=== PATIENT | male | born 1965 | race Caucasian/White ===

== ENCOUNTER 2022-04-18 07:20 | Outpatient (CLI) | payer BC ==
[2022-04-18] MEDS ORDERED: ISOVUE-370 76% 1 ML ONE (16:00)
== END 2022-04-18 07:21 | disposition home or self-care (01) ==
LOC: BICCT 07:20
PROVIDERS: ATTEND Nurse Practitioner Family
DX: R10.9 Unspecified abdominal pain (principal); M25.512 Pain in left shoulder; K42.9 Umbilical hernia without obstruction or gangrene
CPT/HCPCS: 74177